=== PATIENT | male | born 1955 | race Caucasian/White ===

== ENCOUNTER 2023-03-15 23:02 | Emergency (ER) | payer OTHER ==
[~2023-03-15] VITALS: Ht 172.7 cm; Wt 81.6 kg
[2023-03-15 23:36] LABS: BILIRUBIN Negative (Negative); BLOOD 2+ (Negative); CLARITY Clear (Clear); COLOR Yellow (Yellow); GLUCOSE Negative (Negative); KETONE Negative (Negative); LEUKO ESTERASE 3+ (Negative); NITRITE Positive (Negative); SPECIFIC GRAVITY <= 1.005 (1.001-1.030); UROBILINOGEN 0.2 E.U./dl (0.0-1.0)
[2023-03-15 23:47] LABS: BACTERIA 4+; WBC 41-50 wbc/hpf (0-5)
[2023-03-16] MEDS ORDERED: CIPRO500 MG PO (00:15)
== END 2023-03-16 00:20 | disposition home or self-care (01) ==
LOC: ED 23:02
PROVIDERS: Internal Medicine
DX: R33.9 Retention of urine, unspecified (principal); N39.0 Urinary tract infection, site not specified